=== PATIENT | female | born 1960 | race Caucasian/White ===

== ENCOUNTER 2018-08-20 23:55 | Inpatient (IN) | payer BC ==
[~2018-08-20] VITALS: Ht 167.6 cm; Wt 82.6 kg
--- NOTE | ~2018-08-20 | MORECARE ---
CASE MANAGEMENT DISCHARGE SUMMARY PATIENT: BARRY PICKARD UNIT: [id number] ADM DATE: 08/21/18 AGE: 58 : 60 SEX: F ROOM/BED: D.2209 AUTHOR: YONI MATHEW PHYSICIAN: REFERRING PHYSICIAN: ODILIA OWENS MD DATE OF SERVICE: 08/25/18 Discharge Plan Patient Name: BARRY PICKARD [facility] [facility] 1960 Planned Disposition: Anticipated Discharge Date: Discharge Date: 08/21/2018 Expected LOS: Initial Reviewer: [email or web address] Initial Review Date: 08/21/2018 Generated: 08/25/18 1:42 pm Comments DCP- Discharge Planning Updated by [email or web address]: Cindy Patino on 08/21/18 2:[address] ATTEMPTED TO SEE PATIENT, THEY WERE NOT IN ROOM. IN A PROCEDURE WILL TRY AGAIN AT A LATER DATE Last DP export: 08/21/18 2:38 Patient Name: BARRY PICKARD Page [id number] at 1242 All edits/amendments must be made on the electronic document DICTATION DATE: 08/25/18 124 VIGOUREUX PRINTER: JUAN 08/25/18 1241 RPT#: [id number] DC DATE:08/21/18 STATUS: DIS IN [facility] [address] [place] [address] END OF REPORT
--- NOTE | ~2018-08-20 | MORECARE ---
CASE MANAGEMENT DISCHARGE SUMMARY PATIENT: BARRY PICKARD UNIT: [id number] ADM DATE: 08/21/18 AGE: 58 : 60 SEX: F ROOM/BED: D.2209 AUTHOR: YONI MATHEW PHYSICIAN: REFERRING PHYSICIAN: ODILIA OWENS MD DATE OF SERVICE: 08/21/18 Discharge Plan Patient Name: BARR[facility] PICKARD [facility] [facility] 1960 Planned Disposition: Anticipated Discharge Date: Discharge Date: Expected LOS: Initial Reviewer: [email or web address] Initial Review Date: 08/21/2018 Generated: 08/21/18 4:38 pm Comments DCP- Discharge Planning Updated by [email or web address]: Cindy Patino on 08/21/18 2:[address] ATTEMPTED TO SEE PATIENT, THEY WERE NOT IN ROOM. IN A PROCEDURE WILL TRY AGAIN AT A LATER DATE Patient Name: BARRY PICKARD Page [id number] at 1538 All edits/amendments must be made on the electronic document DICTATION DATE: 08/21/18 153 GYNECOLOGICAL ASSISTANT: JUAN 08/21/18 153 RPT#: [id number] DC DATE: STATUS: ADM IN [facility] [address] [place] [address] END OF REPORT
[2018-08-21] MEDS ORDERED: PLAQUENIL 200200 MG PO (00:09)
[2018-08-21] MEDS ORDERED: COZAAR50 MG PO (00:09)
[2018-08-21 00:31] LABS: BASOPHILS 0.3 % (0-2); EOSINOPHILS 2.5 % (0-7); HEMATOCRIT 37.4 % (36.0-48.0); HEMOGLOBIN 13.1 g/dL (12-16); IMMATURE GRANULOCYTES 0.1 % (0-5); LYMPHOCYTES 14.9 % (15-50); MCH 31.6 pg (26.0-34.0); MCV 90.1 fL (80.0-100.0); MEAN PLATELET VOLUME 9.2 fL (7.4-10.4); MONOCYTES 7.2 % (2-11); PLATELET COUNT 247 10x3/uL (130-400); RBC 4.15 10x6/uL (4.00-5.40); RDW 12.3 % (11.5-14.5); WBC 9.6 10x3/uL (4.8-10.8)
[2018-08-21 00:48] LABS: ALBUMIN 4.3 g/dL (3.4-5.0); ANION GAP 11.7 mmol/L (8-16); BILIRUBIN - TOTAL 0.89 mg/dL (0.2-1.3); CALCIUM 9.2 mg/dL (8.5-10.1); CARBON DIOXIDE 29.2 mmol/L (21.0-32.0); CREATININE - SERUM 0.9 mg/dL (0.6-1.3); POTASSIUM - SERUM 3.9 mmol/L (3.5-5.1); PROTEIN - SERUM 7.9 g/dL (6.4-8.2)
[2018-08-21] MEDS ORDERED: MELATONIN10 M1 PO (00:59)
[2018-08-21 02:14] VITALS: BP 146/92; BMI 29.4
[2018-08-21 06:37] VITALS: BP 121/73
[2018-08-21 09:12] VITALS: BP 129/83
[2018-08-21 12:00] VITALS: BP 135/80
[2018-08-21 12:19] VITALS: Ht 167.6 cm; Wt 82.6 kg
[2018-08-21] MEDS ORDERED: PROTONIX40 MG PO (16:10)
[2018-08-21] MEDS ORDERED: CARAFATE1 G/10 ML PO (16:10)
[2018-08-21 16:33] VITALS: BP 120/77
== END 2018-08-21 18:09 | disposition home or self-care (01) | DRG 392 ==
LOC: D.ER 23:55 → D.MS 08-21 00:20
PROVIDERS: Family Medicine; Internal Medicine Gastroenterology
PROC: 0DB68ZX Excision of Stomach, Via Natural or Artificial Opening Endoscopic, Diagnostic (ICD-10-PCS; 2018-08-21)
PROC: 0DB58ZX Excision of Esophagus, Via Natural or Artificial Opening Endoscopic, Diagnostic (ICD-10-PCS; principal; 2018-08-21 14:12)
DX: K20.0 Eosinophilic esophagitis (principal); K44.9 Diaphragmatic hernia without obstruction or gangrene; K21.0 Gastro-esophageal reflux disease with esophagitis; I10 Essential (primary) hypertension; E86.0 Dehydration; K22.2 Esophageal obstruction